=== PATIENT | male | born 1975 | race Caucasian/White ===

== ENCOUNTER 2020-03-13 08:52 | Inpatient (IN) | payer BC ==
[2020-03-13] MEDS ORDERED: Aspirin Chewable 81 MG TAB ONE (09:22)
[2020-03-13] MEDS ORDERED: Nitroglycerin 0.4 MG TAB 1 EACH ONE (09:22)
[2020-03-13 09:29] LABS: #Eosinphils 0.2 thou/uL (0.0-0.7); #Lymphocytes 1.9 thou/uL (1.20-3.40); #Monocytes 0.5 thou/uL (0.11-0.59); #Neutrophils 3.4 thou/uL (1.40-6.50); %Basophils 0.4 % (0.0-1.0); %Eosinophils 2.9 % (0.0-10.0); %Lymphocytes 30.9 % (21.0-51.0); %Monocytes 8.9 % (0.0-10.0); %Neutrophils 56.8 % (42.0-75.0); Mean Corpuscular HGB CONC 35.3 g/dL (32.0-36.0); Mean Corpuscular Hemoglobin 33.1 pg (27.0-31.0); Mean Corpuscular Volume 93.7 fL (78.0-98.0); Mean Platelet Volume 7.9 fL (7.4-10.4); Platelet Count 265 thou/uL (130-400); RBC Distribution Width 12.3 % (11.5-14.5); Red Blood Cell (RBC) Count 4.53 mill/uL (4.70-6.10); White Blood Cell (WBC) Count 6.1 thou/uL (4.8-10.8)
[2020-03-13 09:52] LABS: ALT (SGPT) 31 U/L (8-55); AST (SGOT) 17 U/L (5-34); Albumin 4.1 g/dL (3.5-5.0); Alkaline Phosphatase 65 U/L (40-110); Anion Gap 14 mmol/L (10-20); BUN (Urea Nitrogen) 13 mg/dL (8.9-20.6); Calc. Creatinine Clearance 0 mL/min (70-130); Calcium 8.6 mg/dL (7.8-10.44); Carbon Dioxide 23 mmol/L (22-29); Chloride 104 mmol/L (98-107); Estimated GFR-MDRD Greater than 90; Globulin 2.8 g/dL (2.4-3.5); Glucose 257 mg/dL (70-105); Potassium 4.2 mmol/L (3.5-5.1); Protein, Total 6.9 g/dL (6.0-8.3); Sodium 137 mmol/L (136-145)
--- NOTE | 2020-03-13 09:54 | RAD ---
SINGLE VIEW CHEST: Date: 03/13/2020 COMPARISON: 05/30/2010. HISTORY: Elevated blood pressure and chest pain for 2 weeks. FINDINGS: Single view of the chest shows a normal sized cardiomediastinal silhouette. There is no evidence of c onsolidation, mass, or pleural effusion. The bones are unremarkable. IMPRESSION: No evidence of acute cardiopulmonary disease. POS: EAA
[2020-03-13 10:14] LABS: CKMB 3.6 ng/mL (0-6.6)
[2020-03-13] MEDS ORDERED: Enoxaparin Sodium 30 MG/0.3 ML SYRINGE ONE (10:35)
[2020-03-13] MEDS ORDERED: Enoxaparin Sodium 100 MG/ML SYRINGE ONE (10:35)
--- NOTE | 2020-03-13 13:00 | PDOC.HHP ---
Hospitalist HPI - History of Present Illness chest pressure History of Present Illness: 45yo M w/ MHx of longstanding T2DM and HTN presents for chest pressure. Patient has been very active with any issues up until a week ago, then developed sudden onset substernal dull pain associated with work effort that was relieved with rest and NSAID. At times also associated with shortness of breath, and worse with laying down. Such episodes recurred over the past week, each lasting between 30 minutes to 2 hours. Endorses taking blood pressure at home when he has headache with average systolic being 180, but it was in 220s the day prior to presentation and was associated with headache and chest pressure, so came to the ED. On encounter, endorses resolution of chest pain and has no complaints. Denies headache, change in vision, chest, shoulder, jaw, or upper back pain, pleuritic pain, dyspnea, cough, sputum production, hematuria, focal weakness ED Course: In the ED, grossly elevated blood pressure, started on nitro, aspiring 325mg. Trop elevated and EKG showing nonspecific t-wave inversions Hospitalist ROS - Review of Systems Constitutional: denies: fever, chills, sweats, weakness, malaise, other Respiratory: denies: cough, dry, shortness of breath, hemoptysis, SOB with excertion, pleuritic pain, sputum, wheezing, other Cardiovascular: denies: chest pain, palpitations, orthopnea, paroxysmal noc. dyspnea, edema, light headedness, other Gastrointestinal: denies: nausea, vomiting, abdominal pain, diarrhea, constipation, melena, hematochezia, other Genitourinary: denies: dysuria, frequency, incontinence, hematuria, retention, other Musculoskeletal: denies: neck pain, shoulder pain, arm pain, back pain, hand pain, leg pain, foot pain, other Hospitalist History - Past Medical History Cardiac: reports: HTN. denies: CAD, CHF, GA Pulmonary: denies: COPD, heart attack, lung disease LIBRARY MEDIA SPECIALIST: denies: CVA, TIA Gastrointestinal: denies: GERD Psych: denies: Anxiety Endocrine: reports: Diabetes - Past Surgical History Past Surgical History: reports: Cholecystectomy - Family History Family History: reports: diabetes mellitus, hypertension - Social History Smoking Status: Never smoker Alcohol: reports: Rare Drugs: reports: none Living Situation: With Family Activity level: independent ambulation - Exam General Appearance: NAD, awake alert Eye: PERRL, anicteric sclera Neck: no JVD Heart: RRR, no murmur, no gallops, no rubs Respiratory: CTAB, no wheezes, no rales, no ronchi Gastrointestinal: soft, non-tender, non-distended, normal bowel sounds Extremities: 1+ LE edema Psychiatric: normal affect, normal behavior, A&O x 3 Hospitalist Results - Labs Result Diagrams: 03/13/20 09:16 03/13/20 09:16 Lab results: WBC 6.1 thou/uL (4.8-10.8) 03/13/20 09:16 Hgb 15.0 g/dL (14.0-18.0) 03/13/20 09:16 Hct 42.4 % (42.0-52.0) 03/13/20 09:16 MCV 93.7 fL (78.0-98.0) 03/13/20 09:16 Plt Count 265 thou/uL (130-400) 03/13/20 09:16 Neutrophils % 56.8 % (42.0-75.0) 03/13/20 09:16 Sodium 137 mmol/L (136-145) 03/13/20 09:16 Potassium 4.2 mmol/L (3.5-5.1) 03/13/20 09:16 Chloride 104 mmol/L (98-107) 03/13/20 09:16 Carbon Dioxide 23 mmol/L (22-29) 03/13/20 09:16 BUN 13 mg/dL (8.9-20.6) 03/13/20 09:16 Creatinine 0.80 mg/dL (0.7-1.3) 03/13/20 09:16 Glucose 257 mg/dL (70-105) H 03/13/20 09:16 Calcium 8.6 mg/dL (7.8-10.44) 03/13/20 09:16 Total Bilirubin 1.0 mg/dL (0.2-1.2) 03/13/20 09:16 AST 17 U/L (5-34) 03/13/20 09:16 ALT 31 U/L (8-55) 03/13/20 09:16 Alkaline Phosphatase 65 U/L (40-110) 03/13/20 09:16 CK-MB (CK-2) 3.6 ng/mL (0-6.6) 03/13/20 09:16 Troponin I 0.213 ng/mL (< 0.028) H 03/13/20 09:16 B-Natriuretic Peptide 65.3 pg/mL (0-100) 03/13/20 09:16 Serum Total Protein 6.9 g/dL (6.0-8.3) 03/13/20 09:16 Albumin 4.1 g/dL (3.5-5.0) 03/13/20 09:16 - EKG Interpretation EKG: normal sinus, nonspecific lateral t-wave inversions likely related to LVH (AVl> 11), Left axis deviation with LAFB - Radiology Interpretation Chest x-ray Status: image reviewed by me Additional Comment: cardiomegaly Hospitalist H&P A/P - Problem (1) NSTEMI (non-ST elevated myocardial infarction) Code(s): I21.4 - NON-ST ELEVATION (NSTEMI) MYOCARDIAL INFARCTION Status: Acute (2) Hypertensive emergency Code(s): I16.1 - HYPERTENSIVE EMERGENCY Status: Acute (3) Type 2 diabetes mellitus Status: Acute - Plan Plan: #HTN emergency -systolic > 220 and NSTEMI -in ED, started on nitro, went down to 160s -patient has been adherent to meds but endorses longstanding SBP 180s -EKG showing LVH with left axis deviation -started on new BP regimen that also covers NSTEMI #NSTEMI -Type I vs Type II, regardless, has an intermediate consortium pretest risk for CAD -EKG showing poor r wave progression and nonspecific t-wave inversions -no history of bleeding -lovenox, coreg, nitro, aspirin (given in ED) -pending cardiology evaluation; will likely need LHC or stress test once ACS resolves #T2DM- -sliding scale dispo/ppx Full code DVT PPx - on therapeutic lovenox GI PPx - no indication
[2020-03-13 13:01] VITALS: BMI 41.2
[2020-03-13] MEDS ORDERED: Labetalol HCl 100 MG/20 ML VIAL SLOW IVP PRN (13:07)
[2020-03-13] MEDS ORDERED: Nitroglycerin 0.4 MG TAB (25 Tab Bottle) SL PRN (13:10)
[2020-03-13 13:31] LABS: Troponin I 0.285 ng/mL (< 0.028)
[2020-03-13] MEDS: Carvedilol 6.25 MG TAB PO SCH (16:28)
[2020-03-13] MEDS ORDERED: metFORMIN 500 MG TAB PO SCH (17:00)
[2020-03-13 17:18] LABS: Troponin I 0.264 ng/mL (< 0.028)
[2020-03-13] MEDS ORDERED: Morphine 2 MG/ML SYRINGE SLOW IVP PRN (18:44)
[2020-03-13] MEDS ORDERED: hydrALAZINE 20 MG/ML VIAL SLOW IVP PRN (19:25)
[2020-03-13] MEDS: Insulin Glargine 15 UNITS in Pre-Filled Syringe 1 EACH SC SCH (20:15)
[2020-03-13] MEDS: Enoxaparin Sodium 120 MG/0.8 ML SYRINGE SC SCH (20:15)
[2020-03-13] MEDS ORDERED: Carvedilol 3.125 MG TAB PO SCH (21:00)
--- NOTE | 2020-03-13 22:43 | CON ---
DATE OF CONSULTATION: INDICATION FOR CONSULTATION: This is a 45-year-old gentleman who has a history of hypertension and type 2 diabetes, who has been complaining of increasing shortness of breath with dyspnea on exertion. He said a couple of weeks ago, he started noticing when he was trying to cut the grass, he had to stop after several minutes and then continue to cut later, and then every time he tried to cut the grass, he became more short of breath. Last night and the night before, he has been noticing some chest pressure when he lies down. He describes as being a dull anterior chest discomfort. He said it improves somewhat when he sits up. He checked his blood pressure last night. The blood pressure was significantly elevated over 200 and diastolic was over 120. He has had some difficulties in the past controlling his blood pressure. Said he has had side effects to medications, mainly being losartan and Benicar. He also felt some discomfort in his chest by using these medications. He has lost about 30 pounds in the last year, but still has morbid obesity. He was admitted to the emergency room. His cardiac enzymes, the first set was normal, and the next set showed some indeterminate troponin I, still very low. No indication that the patient has suffered a myocardial infarction at this time. His EKG showed a normal sinus rhythm without any acute ST-segment changes. He did have some tall peaked T-waves in V1 and V2, but no ST-segment elevation and no ST-segment depression or any abnormalities that would indicate ischemia or myocardial infarction. At this time, he denies any chest discomfort. Blood pressure is still somewhat elevated. His last blood pressure was 162/86. In the emergency room, his blood pressure also was significantly elevated as high as 195/117. He was given Lovenox, aspirin, and nitroglycerin in the emergency room. PAST MEDICAL HISTORY: Significant for type 2 diabetes, hypertension, obesity. PAST SURGICAL HISTORY: He has had a cholecystectomy. He has had right knee surgery arthroscopically. SOCIAL HISTORY: He is . He has 3 children. No heart disease. He has no tobacco abuse. He did smoke some small amounts several years ago, but no significant tobacco abuse. He has rare to occasional alcohol use. 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 FAMILY HISTORY: His mother has mitral valve prolapse. His father had coronary artery disease and had bypass in his 60s. His brothers and sisters have no coronary artery disease, but all have hypertension. ALLERGIES: NONE. MEDICATIONS: Prior to admission include: 1. Metformin 500 mg b.i.d. 2. Coreg 3.125 mg b.i.d. 3. Indapamide 2.5 mg once a day. 4. Olmesartan 20 mg q.a.m. 5. Amlodipine 10 mg daily. REVIEW OF SYSTEMS: He complains of some change in decrease in vision. He wears glasses. He complained of shortness of breath. Otherwise, 12-point review of systems is unremarkable. PHYSICAL EXAMINATION: GENERAL: Reveals a well-developed, well-nourished, obese gentleman. VITAL SIGNS: Blood pressure is 162/86, he is afebrile, heart rate is in the 70s, it shows a sinus rhythm, respiratory rate 17, O2 saturation 97% on room air. HEENT: Shows the head to be normocephalic and atraumatic. NECK: Carotid pulses are present. There were no bruits. CHEST: Clear to auscultation without rales, rhonchi, or wheezing. CARDIOVASCULAR: Reveals a regular rate and rhythm with normal S1 and S2. I cannot hear any S3 or S4. There were no significant murmurs, heaves, thrills, bruits, or rubs noted. ABDOMEN: Shows morbid obesity. I cannot palpate any tenderness or masses. Positive bowel sounds are present. EXTREMITIES: Showed no clubbing, cyanosis, or edema. Pedal pulses and radial pulses are present. NEUROLOGIC: The patient appears to be fully intact. There were no gross focal motor deficits noted. SKIN: Warm and dry. PSYCHOSOCIAL: He appears to be normal. There is no evidence of depression. LABORATORY DATA: Shows WBC was 6.1, hemoglobin was 15, platelet count was 265,000. Sodium is 137, potassium 4.2, BUN was 13 with a creatinine of 0.8. His troponin I was 0.21, increased up to 0.28. The CPK-MB was 3.6. His BNP was 66. DIAGNOSTIC DATA: EKG as noted shows a sinus rhythm with no acute changes. There were some T waves in V1 and V2. IMPRESSION: 1. A 45-year-old gentleman with risk factors for coronary artery disease, who has developed some chest discomfort, but has significant hypertension. His slight elevation to cardiac enzymes which are still indeterminate may be due to the hypertension with blood pressures over 200, but once the blood pressure is under better control, I would suggest he undergo stress testing to rule out evidence for underlying ischemia. If there are any abnormalities noted on the stress test, he will need to undergo further evaluation by cardiac catheterization. We will also schedule him for an echocardiogram for evaluation of left ventricular systolic function and valvular status. 2. History of hypertension. We will need to better manage his medications to lower this blood pressure. 3. Diabetes. This will be dealt by the primary care service. Thank you very much for asking us to participate in the care of this patient. We will continue to follow him with you and we will schedule him for stress testing as well as echocardiogram and further workup will depend on the results of these tests. Job ID: [id number]
[2020-03-14 04:15] LABS: #Basophils 0.1 thou/uL (0.0-0.2); #Eosinphils 0.4 thou/uL (0.0-0.7); #Lymphocytes 3.2 thou/uL (1.20-3.40); #Monocytes 0.6 thou/uL (0.11-0.59); #Neutrophils 3.5 thou/uL (1.40-6.50); %Basophils 1.1 % (0.0-1.0); %Eosinophils 4.6 % (0.0-10.0); %Lymphocytes 41.5 % (21.0-51.0); %Monocytes 7.8 % (0.0-10.0); %Neutrophils 45.1 % (42.0-75.0); Hemoglobin 15.5 g/dL (14.0-18.0); Mean Corpuscular HGB CONC 33.6 g/dL (32.0-36.0); Mean Corpuscular Hemoglobin 31.7 pg (27.0-31.0); Mean Corpuscular Volume 94.2 fL (78.0-98.0); Mean Platelet Volume 7.7 fL (7.4-10.4); Platelet Count 295 thou/uL (130-400); RBC Distribution Width 12.2 % (11.5-14.5); White Blood Cell (WBC) Count 7.7 thou/uL (4.8-10.8)
[2020-03-14 04:37] LABS: Anion Gap 14 mmol/L (10-20); BUN (Urea Nitrogen) 14 mg/dL (8.9-20.6); Calc. Creatinine Clearance 206 mL/min (70-130); Calcium 9.1 mg/dL (7.8-10.44); Carbon Dioxide 23 mmol/L (22-29); Chloride 101 mmol/L (98-107); Estimated GFR-MDRD Greater than 90; Glucose 253 mg/dL (70-105); Potassium 3.7 mmol/L (3.5-5.1); Sodium 134 mmol/L (136-145)
[2020-03-14] MEDS: HumaLOG 300 UNITS/3 ML VIAL SC PRN ×2 (06:10→17:17)
[2020-03-14] MEDS: HumaLOG 300 UNITS/3 ML VIAL SC SCH ×3 (07:44→16:14)
[2020-03-14] MEDS: Enoxaparin Sodium 120 MG/0.8 ML SYRINGE SC SCH ×2 (08:05→21:03)
[2020-03-14] MEDS: Chlorthalidone 25 MG TAB PO SCH (08:05)
[2020-03-14] MEDS ORDERED: Losartan 25 MG TAB PO SCH (09:00)
[2020-03-14] MEDS ORDERED: Lisinopril 20 MG TAB PO SCH (09:00)
[2020-03-14] MEDS ORDERED: Amlodipine 10 MG TAB PO SCH (09:00)
[2020-03-14] MEDS ORDERED: cloNIDine 0.1 MG TAB PO SCH ×2 (10:00→21:00)
[2020-03-14] MEDS ORDERED: Regadenoson 0.4 MG/5 ML SYRINGE ONE (10:43)
[2020-03-14] MEDS: Carvedilol 6.25 MG TAB PO SCH ×2 (10:58→16:29)
--- NOTE | 2020-03-14 13:23 | PDOC.CPN ---
- Subjective Date: 03/14/20 Time: 13:22 Interval history: The pt seen and examined. No overnight events. No cardiac complaints. - Objective Allergies/Adverse Reactions: Allergies Allergy/AdvReac Type Severity Reaction Status Date / Time No Known Allergies Allergy Unverified 03/13/20 12:45 Visit Medications: Current Medications Amlodipine Besylate (Norvasc) 10 mg PO DAILY [facility] Last Admin: 03/14/20 08:05 Dose: 10 mg Carvedilol (Coreg) 12.5 mg PO BID-[facility] Last Admin: 03/14/20 10:58 Dose: 12.5 mg Chlorthalidone (Hygroton) 25 mg PO DAILY [facility] Last Admin: 03/14/20 08:05 Dose: 25 mg Clonidine (Catapres) 0.1 mg PO BID [facility] Enoxaparin Sodium (Lovenox) 120 mg SC 0900,2100 [facility] Last Admin: 03/14/20 08:05 Dose: 120 mg Hydralazine HCl (Apresoline) 10 mg SLOW IVP Q4H PRN PRN Reason: SBP Greater Than 180 Last Admin: 03/14/20 08:05 Dose: 10 mg Insulin Glargine 15 units/ (Miscellaneous Medication) 0.15 mls @ 0 mls/hr SC [facility] Last Admin: 03/13/20 20:15 Dose: 0.15 mls Insulin Human Lispro (Humalog) 5 units SC TID-[facility] Last Admin: 03/14/20 11:06 Dose: 5 unit Insulin Human Lispro (Humalog) 0 units SC .MILD SLIDING SCALE PRN PRN Reason: Mild Correctional Scale Last Admin: 03/14/20 06:10 Dose: 4 unit Labetalol HCl (Normodyne) 10 mg SLOW IVP Q4H PRN PRN Reason: SBP Greater Than 180 Lisinopril (Zestril) 20 mg PO DAILY [facility] Last Admin: 03/14/20 08:05 Dose: 20 mg Morphine Sulfate (Morphine) 2 mg SLOW IVP Q2H PRN PRN Reason: Angina Nitroglycerin (Nitrostat) 0.4 mg SL Q5MIN PRN PRN Reason: Chest Pain Vital Signs & Weight: Vital Signs Temp Pulse Resp BP Pulse Ox 03/14/20 10:55 98.1 F 82 16 138/65 96 03/14/20 08:05 77 03/14/20 07:42 98.0 F 77 20 197/106 H 96 03/14/20 02:53 97.6 F 77 177/94 H 93 L Weight 277 lb 14.4 oz - Physical Exam General: alert & oriented x3 HEENT: mucus membranes moist Neck: supple neck Cardiac: regular rate and rhythm, S1/S2 Lungs: clear to auscultation Extremities: no edema - Labs Result Diagrams: 03/14/20 03:26 03/14/20 03:26 Troponin/CKMB CK-MB (CK-2) 3.6 ng/mL (0-6.6) 03/13/20 09:16 Troponin I 0.264 ng/mL (< 0.028) H 03/13/20 16:07 - Telemetry Sinus rhythms and dysrhythmias: sinus rhythm - Assessment/Plan Assessment/Plan: 1. NSTEMI - waiting for Stress test and Echo results. Asymptomatic; 2. HTN emergency - well controlled with current meds 3. DM type 2 MAR reviewed * Waiting for Stress test and Echo results. If normal, ok to d/c from Cardiac standpoint and f/u with Dr Lafleur' office in 2 wks. Pt. seen and eval. by me. I agree with the A/P by the LICENSED PSYCHOLOGIST. May need 2 day protocol. If abnormal stress then plan for cath. Echo: EF 60-65%. , mild LVH, trace MR,TR Chest clear, RRR. gjm
--- NOTE | 2020-03-14 15:52 | EKG ---
Test Reason : CP Blood Pressure : / mmHG Vent. Rate : 076 BPM Atrial Rate : 076 BPM P-R Int : 174 ms QRS Dur : 128 ms QT Int : 430 ms P-R-T Axes : 014 -53 119 degrees QTc Int : 483 ms Normal sinus rhythm Left axis deviation Left ventricular hypertrophy with QRS widening and repolarization abnormality Abnormal ECG Confirmed by HERMILO TRIMBLE DO ([id number]), editorial manager ALINA GROVES ([id number]) on 03/14/2020 3:51:35 PM Referred By: Confirmed By:HERMILO TRIMBLE DO
[2020-03-14] MEDS: cloNIDine 0.1 MG TAB PO SCH (21:03)
[2020-03-14] MEDS: Insulin Glargine 15 UNITS in Pre-Filled Syringe 1 EACH SC SCH (21:04)
--- NOTE | 2020-03-14 21:11 | PDOC.HOSPP ---
- Subjective Encounter Date: 03/14/20 Encounter Time: 19:00 Subjective: no overnight events. This morning, underwent first part of stress test. This evening, has no complaints. Denies chest pain or shortness of breath - Objective Vital Signs & Weight: Vital Signs (12 hours) Temp Pulse Resp BP BP Pulse Ox 03/14/20 21:03 107/61 03/14/20 21:01 98.5 F 70 20 107/61 94 L 03/14/20 15:25 98.5 F 70 18 110/63 96 03/14/20 10:55 98.1 F 82 16 138/65 96 Weight Weight 277 lb 14.4 oz I&O: 03/13/20 03/14/20 03/15/20 06:59 06:59 06:59 Intake Total 720 600 Output Total 300 1400 Balance 420 -800 Result Diagrams: 03/14/20 03:26 03/14/20 03:26 Additional Labs: Accuchecks 03/14/20 03/14/20 03/14/20 16:51 11:05 06:01 POC Glucose 246 H 304 H 264 H Hospitalist ROS - Review of Systems Constitutional: denies: fever, chills, sweats, weakness, malaise, other Respiratory: denies: cough, dry, shortness of breath, hemoptysis, SOB with excertion, pleuritic pain, sputum, wheezing, other Cardiovascular: denies: chest pain, palpitations, orthopnea, paroxysmal noc. dyspnea, edema, light headedness, other Gastrointestinal: denies: nausea, vomiting, abdominal pain, diarrhea, constipation, melena, hematochezia, other - Medication Medications: Active Medications Generic Name Dose Route Start Last Admin Trade Name Freq PRN Reason Stop Dose Admin Carvedilol 12.5 mg 03/13/20 17:00 03/14/20 16:29 Coreg PO 12.5 mg BID-[facility] Administration Chlorthalidone 25 mg 03/14/20 09:00 03/14/20 08:05 Hygroton PO 25 mg DAILY [facility] Administration Clonidine 0.1 mg 03/14/20 21:00 03/14/20 21:03 Catapres PO Not Given BID [facility] Enoxaparin Sodium 120 mg 03/13/20 21:00 03/14/20 21:03 Lovenox SC 120 mg 0900,2100 [facility] Administration Hydralazine HCl 10 mg 03/13/20 19:25 03/14/20 08:05 Apresoline SLOW IVP 10 mg Q4H PRN Administration SBP Greater Than 180 Insulin Glargine 15 units/ 0.15 mls @ 0 mls/hr 03/13/20 21:00 03/14/20 21:04 Miscellaneous Medication SC 0.15 mls HS SIMONE Administration Insulin Human Lispro 0 units 03/13/20 18:44 03/14/20 17:17 Humalog SC 3 unit .MILD SLIDING SCALE PRN Administration Mild Correctional Scale Lisinopril 20 mg 03/14/20 09:00 03/14/20 08:05 Zestril PO 20 mg DAILY [facility] Administration - Exam General Appearance: NAD, awake alert Neck: no JVD Heart: RRR, no murmur, no gallops, no rubs, normal peripheral pulses Respiratory: CTAB, no wheezes, no rales, no ronchi, normal chest expansion, no tachypnea, normal percussion Gastrointestinal: soft, non-tender, non-distended, normal bowel sounds, no palpable masses, no hepatomegaly, no splenomegaly, no bruit Extremities: no edema Psychiatric: normal affect, normal behavior, A&O x 3 Hosp A/P (1) NSTEMI (non-ST elevated myocardial infarction) Code(s): I21.4 - NON-ST ELEVATION (NSTEMI) MYOCARDIAL INFARCTION Status: Acute (2) Type 2 diabetes mellitus Status: Acute - Plan -pending resumption of stress test -BG poorly controlled, modified insulin regimen -HTN better controlled; reduced amlodipine to 5mg per caridology
[2020-03-15] MEDS: HumaLOG 300 UNITS/3 ML VIAL SC PRN (06:07)
[2020-03-15] MEDS ORDERED: Sodium Chloride 0.9% 10 ML ONE (07:40)
[2020-03-15] MEDS ORDERED: HumaLOG 300 UNITS/3 ML VIAL SC SCH (08:00)
--- NOTE | 2020-03-15 09:17 | NM ---
NUCLEAR MEDICINE CARDIAC MYOCARDIAL PERFUSION SPECT EJECTION FRACTION STUDY WALL MOTION CINE: DATE: 03/15/2020 HISTORY: 45-year-old male with hypertension, diabetes mellitus, and dyslipidemia, presents with chest pain. Dr. Hay verbally reported the finding of reversible ischemia by telephone to Hyacinth Verduzco at Dr. Alfred Lafleur office at 9:14 AM 03/15/2020. She was instructed to notify Dr. Lafleur as soon as possible. TECHNIQUE: Number of days: 2 Rest study: Technetium 99m-sestamibi (Cardiolite) dose:27.4 mCi Pharmacologic stress: Lexiscan dose: 0.4 mg Stress study: Technetium 99m-sestamibi (Cardiolite) dose:29.8 mCi FINDINGS: CARDIAC (MYOCARDIAL PERFUSION) SPECT There is a moderate sized reversible perfusion defect at the anteroseptal wall. There is a moderate sized reversible perfusion at the inferior wall. Defect EJECTION FRACTION STUDY Left ventricular EF = 45 % WALL MOTION CINE Subtle mild hypokinesis. IMPRESSION: 2 significant regions of left ventricular reversible myocardial ischemia.
[2020-03-15] MEDS: Carvedilol 6.25 MG TAB PO SCH ×2 (09:31→18:24)
[2020-03-15] MEDS: Chlorthalidone 25 MG TAB PO SCH (09:32)
[2020-03-15] MEDS: Amlodipine 5 MG TAB PO SCH (09:32)
[2020-03-15] MEDS ORDERED: Iopamidol 370 76% 100 ML VIAL ONE (09:33)
[2020-03-15] MEDS: Lisinopril 10 MG TAB PO SCH (09:33)
[2020-03-15] MEDS: Enoxaparin Sodium 120 MG/0.8 ML SYRINGE SC SCH (09:34)
[2020-03-15] MEDS: HumaLOG 300 UNITS/3 ML VIAL SC SCH ×2 (11:28→18:23)
[2020-03-15] MEDS ORDERED: Communication Order-Pharmacy FS SCH (12:45)
--- NOTE | 2020-03-15 12:51 | PDOC.CPN ---
- Subjective Date: 03/15/20 Time: 12:00 Interval history: The pt seen and examined. No overnight events. No cardiac complaints. He stated he had chest pressure whenever he took BP meds for about 2 years. - Objective Allergies/Adverse Reactions: Allergies Allergy/AdvReac Type Severity Reaction Status Date / Time No Known Allergies Allergy Unverified 03/13/20 12:45 Visit Medications: Current Medications Amlodipine Besylate (Norvasc) 5 mg PO DAILY [facility] Last Admin: 03/15/20 09:32 Dose: 5 mg Carvedilol (Coreg) 12.5 mg PO BID-[facility] Last Admin: 03/15/20 09:31 Dose: 12.5 mg Chlorthalidone (Hygroton) 25 mg PO DAILY [facility] Last Admin: 03/15/20 09:32 Dose: 25 mg Clonidine (Catapres) 0.1 mg PO BID [facility] Last Admin: 03/14/20 21:03 Dose: Not Given Enoxaparin Sodium (Lovenox) 120 mg SC 0900,2100 [facility] Last Admin: 03/15/20 09:34 Dose: Not Given Hydralazine HCl (Apresoline) 10 mg SLOW IVP Q4H PRN PRN Reason: SBP Greater Than 180 Last Admin: 03/14/20 08:05 Dose: 10 mg Insulin Glargine 20 units/ (Miscellaneous Medication) 0.2 mls @ 0 mls/hr SC [facility] Insulin Human Lispro (Humalog) 0 units SC .MILD SLIDING SCALE PRN PRN Reason: Mild Correctional Scale Last Admin: 03/15/20 06:07 Dose: 3 unit Insulin Human Lispro (Humalog) 7 units SC TID-[facility] Last Admin: 03/15/20 11:28 Dose: Not Given Lisinopril (Zestril) 10 mg PO DAILY [facility] Last Admin: 03/15/20 09:33 Dose: 10 mg Miscellaneous Information (Communication Order-Pharmacy) 0 each FS ONE [facility] Morphine Sulfate (Morphine) 2 mg SLOW IVP Q2H PRN PRN Reason: Angina Nitroglycerin (Nitrostat) 0.4 mg SL Q5MIN PRN PRN Reason: Chest Pain Vital Signs & Weight: Vital Signs Temp Pulse Resp BP BP BP Pulse Ox 03/15/20 11:19 98.4 F 77 18 130/83 95 03/15/20 09:33 176/98 H 03/15/20 09:32 74 176/98 H 03/15/20 09:31 176/98 H 03/15/20 09:15 98.2 F 74 16 176/98 H 16 L 03/15/20 03:07 98.6 F 70 18 118/64 99 03/15/20 02:21 94 L Weight 275 lb - Physical Exam General: alert & oriented x3 HEENT: mucus membranes moist Neck: supple neck Cardiac: regular rate and rhythm, S1/S2 Lungs: clear to auscultation Neuro: cranial nerve 2-12 intact - Labs Result Diagrams: 03/14/20 03:26 03/14/20 03:26 Troponin/CKMB CK-MB (CK-2) 3.6 ng/mL (0-6.6) 03/13/20 09:16 Troponin I 0.264 ng/mL (< 0.028) H 03/13/20 16:07 - Telemetry Sinus rhythms and dysrhythmias: sinus rhythm - Assessment/Plan Assessment/Plan: 1. NSTEMI - Stress test showed reversible ischemia at anterioseptal and inferior morris with EF 45%; plan for cath today; 2. HTN emergency - well controlled with current meds 3. DM type 2 MAR reviewed * the procedure and the risk of the procedure were explained to the pt today including, but no limited to: hemorrage, introducing infection from cath site, perforation, GA, iodine reaction, renal failure, CVA, and possible . The pt voiced understanding, denied any questions or concern, and agrees to proceed the procedure today. Pt. seen and eval. by me. Elaineee with the A/P by the MOLD DESIGN ENGINEER. RRR,chest clear, no edema. Cath today. [email or web address]
[2020-03-15] MEDS ORDERED: Verapamil 5 MG/2 ML VIAL ONE (16:47)
[2020-03-15] MEDS ORDERED: Nitroglycerin 100MG/250ML BOT 250 ML ONE (16:47)
[2020-03-15] MEDS ORDERED: Heparin 10,000 UNITS/1 ML VIAL ONE (16:47)
[2020-03-15] MEDS ORDERED: Nitroglycerin 0.4 MG TAB (25 Tab Bottle) SL PRN (18:29)
[2020-03-15] MEDS ORDERED: Acetaminophen/Codeine 30-300mg Tablet PO PRN ×2 (18:29)
[2020-03-15] MEDS ORDERED: Sodium Chloride 0.9% 200 ML IV PRN (18:29)
[2020-03-15] MEDS ORDERED: Melatonin 3 MG TAB PO PRN (20:54)
[2020-03-15] MEDS ORDERED: HumaLOG 300 UNITS/3 ML VIAL SC PRN (20:54)
[2020-03-15] MEDS: cloNIDine 0.1 MG TAB PO SCH (20:56)
[2020-03-15] MEDS: Isosorbide Mononitrate 20 MG TAB PO SCH (20:57)
[2020-03-15] MEDS ORDERED: Insulin Glargine 20 UNITS in Pre-Filled Syringe 1 EACH SC SCH (21:00)
--- NOTE | 2020-03-15 21:11 | PDOC.HOSPP ---
- Subjective Encounter Date: 03/15/20 Encounter Time: 09:00 Subjective: no overnight events. This morning, feeling well and has no complains including chest pain - Objective Vital Signs & Weight: Vital Signs (12 hours) Temp Pulse Resp BP BP BP Pulse Ox 03/15/20 20:56 151/72 H 03/15/20 18:29 80 18 145/84 H 03/15/20 18:24 164/89 H 03/15/20 15:50 98.2 F 65 18 137/83 98 03/15/20 11:19 98.4 F 77 18 130/83 95 03/15/20 09:33 176/98 H 03/15/20 09:32 74 176/98 H 03/15/20 09:31 176/98 H 03/15/20 09:15 98.2 F 74 16 176/98 H 16 L Weight Weight 275 lb I&O: 03/14/20 03/15/20 03/16/20 06:59 06:59 06:59 Intake Total 618 173 4307 Output Total 300 1400 275 Balance 420 -680 805 Result Diagrams: 03/14/20 03:26 03/14/20 03:26 Additional Labs: Accuchecks 03/15/20 03/15/20 03/15/20 20:49 18:26 11:19 POC Glucose 277 H 159 H 262 H 03/15/20 03/14/20 05:46 20:32 POC Glucose 202 H 236 H Hospitalist ROS - Review of Systems Constitutional: denies: fever, chills, sweats, weakness, malaise, other Respiratory: denies: cough, dry, shortness of breath, hemoptysis, SOB with excertion, pleuritic pain, sputum, wheezing, other Cardiovascular: denies: chest pain, palpitations, orthopnea, paroxysmal noc. dyspnea, edema, light headedness, other Gastrointestinal: denies: nausea, vomiting, abdominal pain, diarrhea, constipation, melena, hematochezia, other Genitourinary: denies: dysuria, frequency, incontinence, hematuria, retention, other - Medication Medications: Active Medications Generic Name Dose Route Start Last Admin Trade Name Freq PRN Reason Stop Dose Admin Amlodipine Besylate 5 mg 03/15/20 09:00 03/15/20 09:32 Norvasc PO 5 mg DAILY SIMONE Administration Carvedilol 12.5 mg 03/13/20 17:00 03/15/20 18:24 Coreg PO 12.5 mg BID-WM SIMONE Administration Chlorthalidone 25 mg 03/14/20 09:00 03/15/20 09:32 Hygroton PO 25 mg DAILY SIMONE Administration Clonidine 0.1 mg 03/14/20 21:00 03/15/20 20:56 Catapres PO 0.1 mg BID SIMONE Administration Hydralazine HCl 10 mg 03/13/20 19:25 03/14/20 08:05 Apresoline SLOW IVP 10 mg Q4H PRN Administration SBP Greater Than 180 Insulin Glargine 20 units/ 0.2 mls @ 0 mls/hr 03/15/20 21:00 03/15/20 20:55 Miscellaneous Medication SC 0.2 mls HS SIMONE Administration As Directed Insulin Human Lispro 0 units 03/13/20 18:44 03/15/20 06:07 Humalog SC 3 unit .MILD SLIDING SCALE PRN Administration Mild Correctional Scale Insulin Human Lispro 7 units 03/15/20 12:00 03/15/20 18:23 Humalog SC 7 unit TID-WM SIMONE Administration Insulin Human Lispro 0 units 03/15/20 20:54 03/15/20 21:05 Humalog SC 3 unit .BEDTIME SLIDING SC PRN Administration Bedtime Correctional Scale Isosorbide Mononitrate 10 mg 03/15/20 21:00 03/15/20 20:57 Ismo PO 10 mg BID SIMONE Administration Lisinopril 10 mg 03/14/20 21:57 03/15/20 09:33 Zestril PO 10 mg DAILY SIMONE Administration Melatonin 3 mg 03/15/20 20:54 03/15/20 21:05 Melatonin PO 3 mg HSPRN PRN Administration Insomnia Ranolazine 500 mg 03/15/20 21:00 03/15/20 20:56 Ranexa PO 500 mg BID SIMONE Administration - Exam General Appearance: NAD, awake alert Heart: RRR, no murmur, no gallops, no rubs, normal peripheral pulses Respiratory: CTAB, no wheezes, no rales, no ronchi, normal chest expansion, no tachypnea, normal percussion Gastrointestinal: soft, non-tender, non-distended, normal bowel sounds, no palpable masses, no hepatomegaly, no splenomegaly, no bruit Extremities: no edema Psychiatric: normal affect, normal behavior, A&O x 3 Hosp A/P (1) NSTEMI (non-ST elevated myocardial infarction) Code(s): I21.4 - NON-ST ELEVATION (NSTEMI) MYOCARDIAL INFARCTION Status: Acute (2) Type 2 diabetes mellitus Status: Acute - Plan Type I NSTEMI -stress test c/w inducible ischemia -NPO -pending [facility] #HTN -better controlled; should allow medications to reach steady state; follow up with PCP #T2DM -poorly controlled; will adjust insulin regimen based on correction ELOS 1-2 midnights
[2020-03-16 04:41] LABS: #Eosinphils 0.2 thou/uL (0.0-0.7); #Lymphocytes 2.6 thou/uL (1.20-3.40); #Monocytes 0.7 thou/uL (0.11-0.59); #Neutrophils 3.7 thou/uL (1.40-6.50); %Basophils 0.4 % (0.0-1.0); %Eosinophils 3.2 % (0.0-10.0); %Lymphocytes 35.8 % (21.0-51.0); %Monocytes 9.4 % (0.0-10.0); %Neutrophils 51.3 % (42.0-75.0); Hemoglobin 15.3 g/dL (14.0-18.0); Mean Corpuscular HGB CONC 34.3 g/dL (32.0-36.0); Mean Corpuscular Hemoglobin 32.6 pg (27.0-31.0); Mean Corpuscular Volume 94.9 fL (78.0-98.0); Mean Platelet Volume 7.4 fL (7.4-10.4); Platelet Count 293 thou/uL (130-400); RBC Distribution Width 12.2 % (11.5-14.5); Red Blood Cell (RBC) Count 4.71 mill/uL (4.70-6.10); White Blood Cell (WBC) Count 7.3 thou/uL (4.8-10.8)
[2020-03-16 04:59] LABS: Anion Gap 10 mmol/L (10-20); BUN (Urea Nitrogen) 22 mg/dL (8.9-20.6); Calc. Creatinine Clearance 146 mL/min (70-130); Calcium 9.2 mg/dL (7.8-10.44); Carbon Dioxide 29 mmol/L (22-29); Chloride 101 mmol/L (98-107); Estimated GFR-MDRD 72; Glucose 161 mg/dL (70-105); Magnesium 1.8 mg/dL (1.6-2.6); Potassium 3.9 mmol/L (3.5-5.1); Sodium 136 mmol/L (136-145)
[2020-03-16] MEDS: HumaLOG 300 UNITS/3 ML VIAL SC PRN (06:13)
[2020-03-16] MEDS: Isosorbide Mononitrate 20 MG TAB PO SCH (08:23)
[2020-03-16] MEDS: Lisinopril 10 MG TAB PO SCH (08:24)
[2020-03-16] MEDS: Amlodipine 5 MG TAB PO SCH (08:24)
[2020-03-16] MEDS: cloNIDine 0.1 MG TAB PO SCH (08:24)
[2020-03-16] MEDS: Chlorthalidone 25 MG TAB PO SCH (08:24)
[2020-03-16] MEDS: Carvedilol 6.25 MG TAB PO SCH (08:24)
[2020-03-16] MEDS: HumaLOG 300 UNITS/3 ML VIAL SC SCH (08:25)
[2020-03-16] MEDS ORDERED: Rivaroxaban 2.5 MG TAB PO SCH (09:00)
[2020-03-16] MEDS ORDERED: Aspirin 81 mg Enteric Coated Tablet PO SCH (09:00)
[2020-03-16 09:34] VITALS: BP 137/78; TEMP 98.1
--- NOTE | 2020-03-16 09:49 | PDOC.CPN ---
- Subjective Date: 03/16/20 Time: 09:54 Interval history: The pt seen and examined. No overnight events. No cardiac complaints. - Objective Allergies/Adverse Reactions: Allergies Allergy/AdvReac Type Severity Reaction Status Date / Time No Known Allergies Allergy Unverified 03/13/20 12:45 Visit Medications: Current Medications Acetaminophen/Codeine Phosphate (Tylenol #3) 1 tab PO Q4H PRN PRN Reason: Mild Pain (1-3) Acetaminophen/Codeine Phosphate (Tylenol #3) 2 tab PO Q4H PRN PRN Reason: Moderate Pain (4-6) Amlodipine Besylate (Norvasc) 5 mg PO DAILY [facility] Last Admin: 03/16/20 08:24 Dose: 5 mg Aspirin (Ecotrin) 81 mg PO DAILY [facility] Last Admin: 03/16/20 08:27 Dose: 81 mg Atorvastatin Calcium (Lipitor) 10 mg PO [facility] Chlorthalidone (Hygroton) 25 mg PO DAILY [facility] Last Admin: 03/16/20 08:24 Dose: 25 mg Clonidine (Catapres) 0.1 mg PO BID [facility] Last Admin: 03/16/20 08:24 Dose: 0.1 mg Hydralazine HCl (Apresoline) 10 mg SLOW IVP Q4H PRN PRN Reason: SBP Greater Than 180 Last Admin: 03/14/20 08:05 Dose: 10 mg Insulin Glargine 20 units/ (Miscellaneous Medication) 0.2 mls @ 0 mls/hr SC [facility] Last Admin: 03/15/20 20:55 Dose: 0.2 mls Sodium Chloride (Normal Saline 0.9%) 200 mls @ 0 mls/hr IV ONE PRN PRN Reason: SBP < 90 Stop: 03/16/20 18:30 Insulin Human Lispro (Humalog) 0 units SC .MILD SLIDING SCALE PRN PRN Reason: Mild Correctional Scale Last Admin: 03/16/20 06:13 Dose: 2 unit Insulin Human Lispro (Humalog) 7 units SC TID-[facility] Last Admin: 03/16/20 08:25 Dose: 7 unit Insulin Human Lispro (Humalog) 0 units SC .BEDTIME SLIDING SC PRN PRN Reason: Bedtime Correctional Scale Last Admin: 03/15/20 21:05 Dose: 3 unit Isosorbide Mononitrate (Ismo) 10 mg PO BID [facility] Last Admin: 03/16/20 08:23 Dose: 10 mg Lisinopril (Zestril) 10 mg PO DAILY [facility] Last Admin: 03/16/20 08:24 Dose: 10 mg Melatonin (Melatonin) 3 mg PO HSPRN PRN PRN Reason: Insomnia Last Admin: 03/15/20 21:05 Dose: 3 mg Morphine Sulfate (Morphine) 2 mg SLOW IVP Q2H PRN PRN Reason: Angina Nitroglycerin (Nitrostat) 0.4 mg SL Q5MIN PRN PRN Reason: Chest Pain Ranolazine (Ranexa) 500 mg PO BID [facility] Last Admin: 03/16/20 08:23 Dose: 500 mg Rivaroxaban (Xarelto) 2.5 mg PO BID [facility] Vital Signs & Weight: Vital Signs Temp Pulse Resp BP BP Pulse Ox 03/16/20 08:24 67 03/16/20 08:00 98.1 F 78 17 137/78 95 03/16/20 04:53 92 L 03/16/20 03:24 97.7 F 67 18 117/73 92 L 03/16/20 00:00 63 99/59 L Weight 271 lb - Physical Exam General: alert & oriented x3 HEENT: mucus membranes moist Neck: supple neck Cardiac: regular rate and rhythm, S1/S2 Neuro: cranial nerve 2-12 intact Abdomen: unremarkable Extremities: no edema Skin: other (Rt Wrist [employer], no erythema, swelling, drainage, or mass to palpitate the site) - Labs Result Diagrams: 03/16/20 04:22 03/16/20 04:22 Troponin/CKMB CK-MB (CK-2) 3.6 ng/mL (0-6.6) 03/13/20 09:16 Troponin I 0.264 ng/mL (< 0.028) H 03/13/20 16:07 - Telemetry Sinus rhythms and dysrhythmias: sinus rhythm - Assessment/Plan Assessment/Plan: 1. NSTEMI - S/p Cath on 03/15/2020 with 3V CAD, mod-severe hypokinetic inferior wall, 90% stenosis in OM1, 30% in distal Lt Cx, 95% in mid distal PDA, 100% in mid PDA with filling retrograde the distal LAD; <2-2.5mm vessels in LAD, Diag, and PL; diffusely diseased in distal LAD; and EF 40-45%; On Coreg, Lisinopril, Xarelto 2.5mg BID, ASA 81mg qd, Lipitor 10mg qd, and Vascepa (which prescription was sent from Dr Lafleur' office today; the pt agrees to start the med ) 2. HTN emergency - well controlled with current meds 3. DM type 2 4. Obese - the pt is willing to start wt management MAR reviewed * From Cardiac standpoint, the pt is stable to d/c home. The pt will f/u with Dr Lafleur' office in 2 wks * The coupon of Xarelto and Vascepa given to the pt today
[2020-03-16] MEDS ORDERED: Atorvastatin Calcium 10 MG TAB PO SCH (21:00)
[2020-03-16] MEDS ORDERED: Atorvastatin Calcium 40 MG TAB PO SCH (21:00)
--- NOTE | 2020-03-18 08:58 | DIS ---
DATE OF ADMISSION: 03/13/2020 DATE OF DISCHARGE: 03/16/2020 HOSPITAL COURSE: Mr. Christian is a 45-year-old male with a medical history of type 2 diabetes and hypertension, presented with cardiac chest pain. He was diagnosed with type 1 NSTEMI. Left heart catheterization showed multivessel coronary artery disease including a 90% stenosis in the OM1, 30% in the distal left circumflex, and 95% in the mid distal PDA, 100% in the mid PDA. Cardiology started the patient on multiple medications and the chest pain resolved prior to discharge. He was discharged hemodynamically stable with no complaints. He was provided with educational materials with regarding his heart attack as well as dietary modifications in the context of obesity, hypertension, type 2 diabetes, and coronary artery disease. MEDICATIONS: New medications: 1. Amlodipine 5 mg daily. 2. Aspirin 81 mg daily. 3. Atorvastatin 80 mg q.h.s. 4. Chlorthalidone 25 mg daily. 5. Isosorbide mononitrate 10 mg b.i.d. 6. Lisinopril 10 mg daily per Cardiology. 7. Ranolazine 500 mg b.i.d. per Cardiology. 8. Xarelto 2.5 mg b.i.d. 9. Metformin 500 mg b.i.d. Continued medications: 1. Metformin 500 mg b.i.d. 2. Olmesartan 20 mg daily. Discontinued medications; 1. Coreg 3.125 b.i.d. 2. Lozol 2.5 mg daily. 3. Amlodipine 10 mg daily. Job ID: [id number]
== END 2020-03-16 11:34 | disposition home or self-care (01) | DRG 281 ==
LOC: ERS 08:52 → OBSVTOIN 12:34 → 2NO 12:34
PROVIDERS: ADMIT Internal Medicine; ATTEND Internal Medicine
PROC: 4A023N7 Measurement of Cardiac Sampling and Pressure, Left Heart, Percutaneous Approach (ICD-10-PCS; principal; 2020-03-15)
PROC: B2111ZZ Fluoroscopy of Multiple Coronary Arteries using Low Osmolar Contrast (ICD-10-PCS; 2020-03-15)
PROC: B2151ZZ Fluoroscopy of Left Heart using Low Osmolar Contrast (ICD-10-PCS; 2020-03-15)
DX: I21.4 Non-ST elevation (NSTEMI) myocardial infarction (principal); I16.1 Hypertensive emergency; Z68.41 Body mass index [BMI] 40.0-44.9, adult; E11.9 Type 2 diabetes mellitus without complications; I10 Essential (primary) hypertension; E66.9 Obesity, unspecified; I25.10 Atherosclerotic heart disease of native coronary artery without angina pectoris; Z79.899 Other long term (current) drug therapy; Z90.49 Acquired absence of other specified parts of digestive tract; Z79.84 Long term (current) use of oral hypoglycemic drugs
CPT/HCPCS: 36415; 36416; 71045; 78452; 80048; 80053; 82553; 83735; 83880; 84484; 85025; 93005; 93017; 93306; 93458; 93798; 94760; 96372; A9500; C1769; J0360; J1644; J1650; J1815; J2785; Q9967